=== PATIENT | female | born 1980 | race Caucasian/White ===

== ENCOUNTER 2016-10-29 20:47 | Emergency (ER) | payer SELFPAY ==
[~2016-10-29] VITALS: Ht 160 cm; Wt 50.0 kg
[2016-10-29 21:09] LABS: APPEARANCE,URINE CLOUDY (CLEAR); GLUCOSE, URINE (UA) NEGATIVE (NEGATIVE); KETONES,URINE NEGATIVE (NEGATIVE); LEUKOCYTE ESTERASE ,URINE TRACE (NEGATIVE); OCCULT BLOOD,URINE NEGATIVE (NEGATIVE); PROTEIN,URINE NEGATIVE (NEGATIVE)
[2016-10-29 21:12] LABS: ADD UA MICROSCOPIC YES
[2016-10-29 21:14] LABS: RBC,URINE 0-2 /HPF (0-2)
[2016-10-29 21:16] LABS: SQUAMOUS EPITHELIAL CELL,UR Many /LPF (None Seen)
[2016-10-29 21:20] LABS: BASOPHILS % (AUTO) 0.6 % (0.0-2.0); HEMOGLOBIN 13.9 g/dL (12.0-16.0); LYMPHOCYTES # (AUTO) 2.6 K/uL (1.0-4.8); LYMPHOCYTES % (AUTO) 20.6 % (22.0-44.0); MEAN CORPUSCULAR HEMOGLOBIN 28.5 pg (26.0-34.0); MEAN CORPUSCULAR HGB CONC 33.8 G/dL (31.0-37.0); MEAN CORPUSCULAR VOLUME 84 fL (80-100); MONOCYTES # (AUTO) 0.9 K/uL (0.1-1.0); MONOCYTES % (AUTO) 6.9 % (2.0-9.0); NEUTROPHILS % (AUTO) 70.9 % (40.0-70.0); PLATELET COUNT (AUTO) 338 K/uL (150-450); RED BLOOD CELL COUNT(AUTO) 4.86 MIL/uL (4.00-5.20); RED CELL DISTRIBUTION WIDTH 13.9 % (11.5-14.5); WHITE BLOOD COUNT (AUTO) 12.6 K/uL (4.5-11.0)
[2016-10-29 21:28] LABS: CALCIUM, TOTAL 9.1 mg/dL (8.8-10.5); CREATININE 1.43 mg/dL (0.60-1.30); POTASSIUM 3.5 mmol/L (3.5-5.1)
[2016-10-29 21:34] LABS: ALBUMIN 3.9 g/dL (3.4-5.0); BILIRUBIN,TOTAL 0.2 mg/dL (0.1-1.0); TOTAL PROTEIN, SERUM 7.9 g/dL (6.4-8.2)
[2016-10-29] MEDS ORDERED: SODIUM CHLORIDE 0.9% 1,000 ML IV ONE (23:15)
[2016-10-29] MEDS ORDERED: MORPHINE SULFATE 4 MG/ML SYRINGE IVP ONE (23:15)
[2016-10-29] MEDS ORDERED: METOCLOPRAMIDE HCL 5 MG/ML 2 ML VIAL IVP ONE (23:15)
[2016-10-30 01:45] VITALS: BP 120/75
== END 2016-10-30 01:52 | disposition home or self-care (01) ==
LOC: EMS 20:51
DX: N83.202 Unspecified ovarian cyst, left side (principal); K59.00 Constipation, unspecified; F17.210 Nicotine dependence, cigarettes, uncomplicated
CPT/HCPCS: 36415; 74176; 80053; 80307; 81001; 83690; 84703; 85025; 87077; 87086; 87186; 96374; 96375; 99285; J2270; J2765; J7030

== ENCOUNTER 2016-11-06 08:45 | Emergency (ER) | payer SELFPAY ==
[~2016-11-06] VITALS: Ht 162.6 cm; Wt 50.0 kg
[2016-11-06 09:40] LABS: BASOPHILS % (AUTO) 0.4 % (0.0-2.0); EOSINOPHILS % (AUTO) 1.4 % (1.0-6.0); HEMATOCRIT 38.9 % (36-46); HEMOGLOBIN 13.1 g/dL (12.0-16.0); LYMPHOCYTES # (AUTO) 1.5 K/uL (1.0-4.8); LYMPHOCYTES % (AUTO) 12.3 % (22.0-44.0); MEAN CORPUSCULAR HEMOGLOBIN 28.4 pg (26.0-34.0); MEAN CORPUSCULAR HGB CONC 33.7 G/dL (31.0-37.0); MEAN CORPUSCULAR VOLUME 84 fL (80-100); MONOCYTES # (AUTO) 1.5 K/uL (0.1-1.0); MONOCYTES % (AUTO) 12.5 % (2.0-9.0); NEUTROPHILS # (AUTO) 8.7 K/uL (1.8-7.7); NEUTROPHILS % (AUTO) 73.4 % (40.0-70.0); PLATELET COUNT (AUTO) 326 K/uL (150-450); RED BLOOD CELL COUNT(AUTO) 4.62 MIL/uL (4.00-5.20); RED CELL DISTRIBUTION WIDTH 13.6 % (11.5-14.5); WHITE BLOOD COUNT (AUTO) 11.8 K/uL (4.5-11.0)
[2016-11-06 09:49] LABS: CREATININE 1.11 mg/dL (0.60-1.30)
[2016-11-06 09:58] LABS: ALBUMIN 3.2 g/dL (3.4-5.0); BILIRUBIN,TOTAL 0.2 mg/dL (0.1-1.0)
[2016-11-06 10:15] LABS: APPEARANCE,URINE CLOUDY (CLEAR); GLUCOSE, URINE (UA) NEGATIVE (NEGATIVE); KETONES,URINE NEGATIVE (NEGATIVE); LEUKOCYTE ESTERASE ,URINE SMALL (NEGATIVE); OCCULT BLOOD,URINE MODERATE (NEGATIVE); PROTEIN,URINE TRACE (NEGATIVE)
[2016-11-06 10:25] LABS: SQUAMOUS EPITHELIAL CELL,UR Moderate /LPF (None Seen)
[2016-11-06 11:02] VITALS: BP 131/79
[2016-11-06] MEDS ORDERED: CIPROFLOXACIN HCL 250 MG TABLET PO ONE (11:30)
== END 2016-11-06 11:43 | disposition home or self-care (01) ==
LOC: EMS 08:47
DX: N39.0 Urinary tract infection, site not specified (principal); F17.210 Nicotine dependence, cigarettes, uncomplicated; Z90.89 Acquired absence of other organs
CPT/HCPCS: 87086; 99284

== ENCOUNTER 2016-12-10 00:19 | Emergency (ER) | payer MEDICAID ==
[~2016-12-10] VITALS: Ht 160 cm; Wt 50.0 kg
[2016-12-10 01:40] VITALS: BP 154/111
[2016-12-10 01:43] LABS: APPEARANCE,URINE CLOUDY (CLEAR); GLUCOSE, URINE (UA) NEGATIVE (NEGATIVE); KETONES,URINE NEGATIVE (NEGATIVE); LEUKOCYTE ESTERASE ,URINE SMALL (NEGATIVE); OCCULT BLOOD,URINE NEGATIVE (NEGATIVE); PROTEIN,URINE NEGATIVE (NEGATIVE)
[2016-12-10 01:45] LABS: ADD UA MICROSCOPIC YES
[2016-12-10 01:52] LABS: RBC,URINE 0-2 /HPF (0-2); SQUAMOUS EPITHELIAL CELL,UR Few /LPF (None Seen)
[2016-12-10] MEDS ORDERED: CloNIDine HCL 0.2 MG TABLET PO ONE (02:00)
[2016-12-10] MEDS ORDERED: KETOROLAC TROMETHAMINE 30 MG/ML VIAL IM ONE (02:00)
== END 2016-12-10 02:20 | disposition home or self-care (01) ==
LOC: EMS 00:20
DX: G43.909 Migraine, unspecified, not intractable, without status migrainosus (principal); F17.210 Nicotine dependence, cigarettes, uncomplicated
CPT/HCPCS: 80307; 81001; 84703; 87077; 87086; 87186; 96372; 99284; J1885

== ENCOUNTER 2017-01-11 23:30 | Emergency (ER) | payer MEDICAID ==
[~2017-01-11] VITALS: Ht 165.1 cm; Wt 50.0 kg
[2017-01-11] MEDS ORDERED: AMLO-512 PO (23:35)
[2017-01-12 00:33] LABS: BASOPHILS # (AUTO) 0.08 K/uL (0.00-0.20); BASOPHILS % (AUTO) 0.5 % (0.0-2.0); EOSINOPHILS # (AUTO) 0.16 K/uL (0.00-0.70); EOSINOPHILS % (AUTO) 1.06 % (1.0-6.0); HEMATOCRIT 41.1 % (36-46); HEMOGLOBIN 13.8 g/dL (12.0-16.0); LYMPHOCYTES # (AUTO) 2.5 K/uL (1.0-4.8); LYMPHOCYTES % (AUTO) 16.7 % (22.0-44.0); MEAN CORPUSCULAR HEMOGLOBIN 28.4 pg (26.0-34.0); MEAN CORPUSCULAR HGB CONC 33.6 G/dL (31.0-37.0); MEAN CORPUSCULAR VOLUME 85 fL (80-100); MONOCYTES # (AUTO) 1.2 K/uL (0.1-1.0); MONOCYTES % (AUTO) 8.1 % (2.0-9.0); NEUTROPHILS # (AUTO) 11.1 K/uL (1.8-7.7); NEUTROPHILS % (AUTO) 73.6 % (40.0-70.0); PLATELET COUNT (AUTO) 350 K/uL (150-450); RED BLOOD CELL COUNT(AUTO) 4.86 MIL/uL (4.00-5.20); RED CELL DISTRIBUTION WIDTH 12.9 % (11.5-14.5); WHITE BLOOD COUNT (AUTO) 15.1 K/uL (4.5-11.0)
[2017-01-12 00:41] LABS: ANION GAP 5 mmol/L (8-16); CALCIUM, TOTAL 9.6 mg/dL (8.8-10.5); CARBON DIOXIDE 33 mmol/L (22-29); CHLORIDE 102 mmol/L (98-107); CREATININE 1.23 mg/dL (0.60-1.30); GLOMERULAR FILTR. RATE CALC 50 mL/min (>60); POTASSIUM 3.7 mmol/L (3.5-5.1); SODIUM SERUM 140 mmol/L (136-145); UREA NITROGEN, BLOOD 17 mg/dL (7-18)
[2017-01-12 00:47] LABS: ALANINE AMINOTRANSFERASE 15 U/L (12-78); ALBUMIN 3.8 g/dL (3.4-5.0); ASPARTATE AMINOTRANSFERASE 14 U/L (15-37); BILIRUBIN,TOTAL 0.2 mg/dL (0.1-1.0); TOTAL PROTEIN, SERUM 7.7 g/dL (6.4-8.2)
[2017-01-12 02:30] VITALS: BP 146/98
== END 2017-01-12 03:10 | disposition home or self-care (01) ==
LOC: EMS 23:31
DX: T43.625A Adverse effect of amphetamines, initial encounter (principal); Y92.89 Other specified places as the place of occurrence of the external cause
CPT/HCPCS: 36415; 80053; 85025; 93005; 99285; G0480

== ENCOUNTER 2017-02-03 21:08 | Emergency (ER) | payer MEDICAID ==
[~2017-02-03] VITALS: Ht 162.6 cm; Wt 50.0 kg
[~2017-02-03 21:08] MED LIST: AMLO-512 PO
[2017-02-03 22:13] LABS: APPEARANCE,URINE CLOUDY (CLEAR); GLUCOSE, URINE (UA) NEGATIVE (NEGATIVE); KETONES,URINE NEGATIVE (NEGATIVE); LEUKOCYTE ESTERASE ,URINE NEGATIVE (NEGATIVE); OCCULT BLOOD,URINE MODERATE (NEGATIVE); PH,URINE 6.5 (5.0-8.0); PROTEIN,URINE NEGATIVE (NEGATIVE)
[2017-02-03 22:14] LABS: ADD UA MICROSCOPIC YES
[2017-02-03] MEDS ORDERED: IBUPROFEN 600 MG TABLET PO ONE (22:15)
[2017-02-03 22:17] LABS: SQUAMOUS EPITHELIAL CELL,UR Few /LPF (None Seen)
[2017-02-03 22:18] LABS: BASOPHILS % (AUTO) 0.7 % (0.0-2.0); EOSINOPHILS % (AUTO) 1.2 % (1.0-6.0); HEMATOCRIT 37.2 % (36-46); HEMOGLOBIN 12.4 g/dL (12.0-16.0); LYMPHOCYTES # (AUTO) 1.3 K/uL (1.0-4.8); LYMPHOCYTES % (AUTO) 20.6 % (22.0-44.0); MEAN CORPUSCULAR HEMOGLOBIN 28.2 pg (26.0-34.0); MEAN CORPUSCULAR HGB CONC 33.2 G/dL (31.0-37.0); MEAN CORPUSCULAR VOLUME 85 fL (80-100); MONOCYTES # (AUTO) 1.1 K/uL (0.1-1.0); MONOCYTES % (AUTO) 16.9 % (2.0-9.0); NEUTROPHILS # (AUTO) 3.9 K/uL (1.8-7.7); NEUTROPHILS % (AUTO) 60.6 % (40.0-70.0); PLATELET COUNT (AUTO) 309 K/uL (150-450); RED BLOOD CELL COUNT(AUTO) 4.39 MIL/uL (4.00-5.20); RED CELL DISTRIBUTION WIDTH 13.5 % (11.5-14.5); WHITE BLOOD COUNT (AUTO) 6.4 K/uL (4.5-11.0)
[2017-02-03 22:54] LABS: ANION GAP 6 mmol/L (8-16); CALCIUM, TOTAL 8.4 mg/dL (8.8-10.5); CARBON DIOXIDE 29 mmol/L (22-29); CHLORIDE 105 mmol/L (98-107); CREATININE 1.08 mg/dL (0.60-1.30); GLOMERULAR FILTR. RATE CALC 58 mL/min (>60); POTASSIUM 3.5 mmol/L (3.5-5.1); SODIUM SERUM 140 mmol/L (136-145); UREA NITROGEN, BLOOD 11 mg/dL (7-18)
[2017-02-03 23:12] VITALS: BP 143/100
[2017-02-03 23:18] LABS: ALANINE AMINOTRANSFERASE 21 U/L (12-78); ALBUMIN 3.5 g/dL (3.4-5.0); ASPARTATE AMINOTRANSFERASE 20 U/L (15-37); BILIRUBIN,TOTAL 0.2 mg/dL (0.1-1.0); CREATINE KINASE MB 4.5 ng/mL (0-5); CREATINE KINASE, TOTAL 297 U/L (26-192); TOTAL PROTEIN, SERUM 7.2 g/dL (6.4-8.2)
== END 2017-02-03 23:41 | disposition home or self-care (01) ==
LOC: EMS 21:09
DX: M79.1 Myalgia (principal); N39.0 Urinary tract infection, site not specified; I10 Essential (primary) hypertension; F17.210 Nicotine dependence, cigarettes, uncomplicated
CPT/HCPCS: 87086; 99284

== ENCOUNTER 2017-05-29 23:19 | Emergency (ER) | payer MEDICAID ==
[~2017-05-29] VITALS: Ht 165.1 cm; Wt 49.1 kg
[2017-05-30 02:32] VITALS: BP 159/98
[2017-05-30] MEDS ORDERED: MORPHINE SULFATE 4 MG/ML SYRINGE IM ONE (02:45)
[2017-05-30] MEDS ORDERED: DEXAMETHASONE SOD PHOS 4 MG/ML 5 ML VIAL IM ONE (02:45)
[2017-05-30] MEDS ORDERED: LORazepam 2 MG/ML VIAL IM ONE (02:45)
== END 2017-05-30 03:03 | disposition home or self-care (01) ==
LOC: EMS 23:19
DX: G54.2 Cervical root disorders, not elsewhere classified (principal); I10 Essential (primary) hypertension; F17.210 Nicotine dependence, cigarettes, uncomplicated
CPT/HCPCS: 96372; 99284; J1100; J2060; J2270

== ENCOUNTER 2017-07-24 01:17 | Emergency (ER) | payer MEDICAID ==
[~2017-07-24] VITALS: Ht 162.6 cm; Wt 50.0 kg
[2017-07-24 01:23] VITALS: BP 143/102
== END 2017-07-24 03:11 | disposition left against medical advice (07) ==
LOC: EMS 01:18
DX: T19.2XXA Foreign body in vulva and vagina, initial encounter (principal); X58.XXXA Exposure to other specified factors, initial encounter; Y93.89 Activity, other specified; Y92.89 Other specified places as the place of occurrence of the external cause; Y99.8 Other external cause status; Z53.21 Procedure and treatment not carried out due to patient leaving prior to being seen by health care provider

== ENCOUNTER 2017-09-20 16:07 | Emergency (ER) | payer MEDICAID ==
[~2017-09-20] VITALS: Ht 162.6 cm; Wt 50.0 kg
[2017-09-20 18:00] VITALS: BP 148/96
== END 2017-09-20 18:04 | disposition home or self-care (01) ==
LOC: EMS 16:08
DX: H61.22 Impacted cerumen, left ear (principal); I10 Essential (primary) hypertension; F17.210 Nicotine dependence, cigarettes, uncomplicated; F19.90 Other psychoactive substance use, unspecified, uncomplicated
CPT/HCPCS: 69209; 99282

== ENCOUNTER 2017-10-04 19:58 | Emergency (ER) | payer MEDICAID ==
[~2017-10-04] VITALS: Ht 162.6 cm; Wt 50.0 kg
[2017-10-04 20:00] VITALS: BP 164/67
== END 2017-10-04 22:30 | disposition left against medical advice (07) ==
LOC: EMS 19:59
DX: T23.051A Burn of unspecified degree of right palm, initial encounter (principal); I10 Essential (primary) hypertension; F17.210 Nicotine dependence, cigarettes, uncomplicated; F19.90 Other psychoactive substance use, unspecified, uncomplicated; Z53.21 Procedure and treatment not carried out due to patient leaving prior to being seen by health care provider; X12.XXXA Contact with other hot fluids, initial encounter; Y93.89 Activity, other specified; Y92.89 Other specified places as the place of occurrence of the external cause; Y99.8 Other external cause status

== ENCOUNTER 2017-10-05 02:41 | Emergency (ER) | payer MEDICAID ==
[~2017-10-05] VITALS: Ht 157.5 cm; Wt 59.1 kg
[2017-10-05 02:45] VITALS: BP 149/97
[2017-10-05] MEDS ORDERED: SILVER SULFADIAZINE 1% 25 GM CREAM TP ONE (03:15)
== END 2017-10-05 03:52 | disposition home or self-care (01) ==
LOC: EMS 02:42
DX: T23.201A Burn of second degree of right hand, unspecified site, initial encounter (principal); I10 Essential (primary) hypertension; F17.210 Nicotine dependence, cigarettes, uncomplicated; F19.90 Other psychoactive substance use, unspecified, uncomplicated; X08.8XXA Exposure to other specified smoke, fire and flames, initial encounter; Y93.89 Activity, other specified; Y92.89 Other specified places as the place of occurrence of the external cause; Y99.8 Other external cause status
CPT/HCPCS: 16020; 99284; Z7610

== ENCOUNTER 2017-10-10 20:24 | Emergency (ER) | payer MEDICAID ==
[~2017-10-10] VITALS: Ht 162.6 cm; Wt 50.0 kg
[2017-10-10 20:42] VITALS: BP 166/104
== END 2017-10-10 23:37 | disposition left against medical advice (07) ==
LOC: EMS 20:25
DX: T23.0 Burn of unspecified degree of wrist and hand (principal); I10 Essential (primary) hypertension; F17.210 Nicotine dependence, cigarettes, uncomplicated; Z76.0 Encounter for issue of repeat prescription; X58.XXXD Exposure to other specified factors, subsequent encounter; Z53.21 Procedure and treatment not carried out due to patient leaving prior to being seen by health care provider

== ENCOUNTER 2017-12-12 14:47 | Emergency (ER) | payer MEDICAID ==
[~2017-12-12] VITALS: Ht 162.6 cm; Wt 50.0 kg
[2017-12-12] MEDS ORDERED: SODIUM CHLORIDE 0.9% 1,000 ML IV ONE (17:00)
[2017-12-12 17:21] LABS: EOSINOPHILS % (AUTO) 2.1 % (1.0-6.0); HEMATOCRIT 40.8 % (36-46); HEMOGLOBIN 13.7 g/dL (12.0-16.0); MEAN CORPUSCULAR HEMOGLOBIN 28.4 pg (26.0-34.0); MEAN CORPUSCULAR HGB CONC 33.5 G/dL (31.0-37.0); MEAN CORPUSCULAR VOLUME 85 fL (80-100); MONOCYTES # (AUTO) 1.1 K/uL (0.1-1.0); MONOCYTES % (AUTO) 11.9 % (2.0-9.0); NEUTROPHILS # (AUTO) 5.5 K/uL (1.8-7.7); PLATELET COUNT (AUTO) 305 K/uL (150-450); RED BLOOD CELL COUNT(AUTO) 4.81 MIL/uL (4.00-5.20); RED CELL DISTRIBUTION WIDTH 13.7 % (11.5-14.5)
[2017-12-12 17:37] LABS: CALCIUM, TOTAL 8.9 mg/dL (8.8-10.5); CREATININE 1.21 mg/dL (0.60-1.30); POTASSIUM 3.3 mmol/L (3.5-5.1)
[2017-12-12 17:51] LABS: ALBUMIN 3.6 g/dL (3.4-5.0); BILIRUBIN,TOTAL 0.3 mg/dL (0.1-1.0); TOTAL PROTEIN, SERUM 7.5 g/dL (6.4-8.2)
[2017-12-12] MEDS ORDERED: CEPHALEXIN MONOHYDRATE 500 MG CAPSULE PO ONE (18:15)
[2017-12-12 18:41] VITALS: BP 149/98
== END 2017-12-12 18:53 | disposition home or self-care (01) ==
LOC: EMS 14:48
DX: T19.2XXA Foreign body in vulva and vagina, initial encounter (principal); R53.81 Other malaise; I10 Essential (primary) hypertension; F17.210 Nicotine dependence, cigarettes, uncomplicated; F15.10 Other stimulant abuse, uncomplicated; Z71.6 Tobacco abuse counseling; Z98.890 Other specified postprocedural states; Z90.49 Acquired absence of other specified parts of digestive tract; X58.XXXA Exposure to other specified factors, initial encounter; Y93.89 Activity, other specified; Y92.89 Other specified places as the place of occurrence of the external cause; Y99.8 Other external cause status
CPT/HCPCS: 36415; 80053; 85025; 99284; 99406; J7030

== ENCOUNTER 2018-05-20 12:33 | Emergency (ER) | payer MEDICAID ==
[~2018-05-20] VITALS: Ht 162.6 cm; Wt 50.0 kg
[2018-05-20 12:46] VITALS: BP 154/98
== END 2018-05-20 14:15 | disposition left against medical advice (07) ==
LOC: EMS 12:33
DX: M79.644 Pain in right finger(s) (principal); Z53.21 Procedure and treatment not carried out due to patient leaving prior to being seen by health care provider

== ENCOUNTER 2018-05-21 12:05 | Emergency (ER) | payer MEDICAID ==
[~2018-05-21] VITALS: Ht 162.6 cm; Wt 50.0 kg
[2018-05-21] MEDS ORDERED: IBUPROFEN 400 MG TABLET PO ONE (13:00)
[2018-05-21 14:50] VITALS: BP 126/84
== END 2018-05-21 15:00 | disposition home or self-care (01) ==
LOC: EMS 12:06
DX: S62.646A Nondisplaced fracture of proximal phalanx of right little finger, initial encounter for closed fracture (principal); S62.624A Displaced fracture of middle phalanx of right ring finger, initial encounter for closed fracture; I10 Essential (primary) hypertension; F17.210 Nicotine dependence, cigarettes, uncomplicated; F19.90 Other psychoactive substance use, unspecified, uncomplicated; W21.01XA Struck by football, initial encounter; Y93.61 Activity, american tackle football; Y92.89 Other specified places as the place of occurrence of the external cause; Y99.8 Other external cause status

== ENCOUNTER 2019-06-07 12:35 | Emergency (ER) | payer MEDICAID ==
[~2019-06-07] VITALS: Ht 160 cm; Wt 50.0 kg
[2019-06-07] MEDS ORDERED: KETOROLAC TROMETHAMINE 60 MG/2 ML VIAL IM ONE (13:30)
[2019-06-07 14:50] VITALS: BP 118/82
== END 2019-06-07 15:27 | disposition home or self-care (01) ==
LOC: EMS 12:41
DX: S46.812A Strain of other muscles, fascia and tendons at shoulder and upper arm level, left arm, initial encounter (principal); I10 Essential (primary) hypertension; F17.210 Nicotine dependence, cigarettes, uncomplicated; F15.90 Other stimulant use, unspecified, uncomplicated; Z98.890 Other specified postprocedural states; X50.9XXA Other and unspecified overexertion or strenuous movements or postures, initial encounter; Y93.89 Activity, other specified; Y92.89 Other specified places as the place of occurrence of the external cause; Y99.8 Other external cause status
CPT/HCPCS: 96372; 99283; 99406; J1885

== ENCOUNTER 2020-01-25 11:54 | Emergency (ER) | payer MEDICAID ==
[~2020-01-25] VITALS: Ht 154.9 cm; Wt 52.3 kg
[2020-01-25 12:07] VITALS: BP 185/135
== END 2020-01-25 13:51 | disposition left against medical advice (07) ==
LOC: EMS 11:57
DX: H57.11 Ocular pain, right eye (principal); Z53.21 Procedure and treatment not carried out due to patient leaving prior to being seen by health care provider

== ENCOUNTER 2021-01-13 15:05 | Emergency (ER) | payer MEDICAID ==
[~2021-01-13] VITALS: Ht 152.4 cm; Wt 55.0 kg
[2021-01-13 15:37] VITALS: BP 101/55
[2021-01-13 19:15] LABS: APPEARANCE,URINE CLOUDY (CLEAR); GLUCOSE, URINE (UA) NEGATIVE (NEGATIVE); KETONES,URINE TRACE mg/dL (NEGATIVE); LEUKOCYTE ESTERASE ,URINE MODERATE (NEGATIVE); NITRATE,URINE POSITIVE (NEGATIVE); OCCULT BLOOD,URINE LARGE (NEGATIVE); PROTEIN,URINE POS 1+ (NEGATIVE)
[2021-01-13 19:16] LABS: BILIRUBIN,URINE PRELIM. POSITIVE (NEGATIVE)
[2021-01-13 19:54] LABS: SQUAMOUS EPITHELIAL CELL,UR Many /LPF (None Seen)
[2021-01-13 19:55] LABS: WBC,URINE 26-50 /HPF (0-5)
[2021-01-13 19:56] LABS: BACTERIA,URINE Many /HPF (None Seen)
== END 2021-01-13 18:32 | disposition left against medical advice (07) ==
LOC: EMS 15:09
DX: R52 Pain, unspecified (principal); Z53.21 Procedure and treatment not carried out due to patient leaving prior to being seen by health care provider
CPT/HCPCS: 81001; 87077; 87086; 87186

== ENCOUNTER 2021-02-08 16:56 | Emergency (ER) | payer MEDICAID ==
[~2021-02-08] VITALS: Ht 162.6 cm; Wt 50.0 kg
[2021-02-08 17:07] VITALS: BP 144/98
== END 2021-02-08 17:56 | disposition home or self-care (01) ==
LOC: EMS 16:57
DX: N63.0 Unspecified lump in unspecified breast (principal)
CPT/HCPCS: 99281; Z7502

== ENCOUNTER 2023-11-30 11:38 | Emergency (ER) | payer MEDICAID ==
[~2023-11-30] VITALS: Ht 162.6 cm; Wt 54.5 kg
[2023-11-30 11:48] VITALS: TEMP 98.1
[2023-11-30 12:14] LABS: COVID AG,FIA SOURCE NASAL SWAB
[2023-11-30 13:10] LABS: RAPID GROUP A STREP NEGATIVE (NEGATIVE)
[2023-11-30 13:11] VITALS: BP 148/92; PULSE 96; RESP 16
[2023-11-30 13:11] LABS: SARS-COV2 (COVID) ANTIGEN,FIA Negative (Negative)
[2023-11-30 13:13] LABS: INFLUENZA TYPE A NEGATIVE FOR TYPE A (NEGATIVE); INFLUENZA TYPE B NEGATIVE FOR TYPE B (NEGATIVE)
[2023-11-30] MEDS ORDERED: PSEU-191 PO (13:51)
[2023-11-30] MEDS ORDERED: AZIT250T9 PO (13:51)
== END 2023-11-30 14:11 | disposition home or self-care (01) ==
LOC: EMS 11:38
DX: J01.90 Acute sinusitis, unspecified (principal); J02.9 Acute pharyngitis, unspecified; R09.89 Other specified symptoms and signs involving the circulatory and respiratory systems; I10 Essential (primary) hypertension; F17.210 Nicotine dependence, cigarettes, uncomplicated; Z20.822 Contact with and (suspected) exposure to COVID-19
CPT/HCPCS: 87430; 87804; 99283

== ENCOUNTER 2024-01-18 20:16 | Emergency (ER) | payer MEDICAID ==
[~2024-01-18 20:16] MED LIST changes: -AMLO-512 PO; +PSEU-191 PO
[2024-01-18 21:08] LABS: BASOPHILS % (AUTO) 0.9 % (0.0-2.0); HEMATOCRIT 40.7 % (36-46); HEMOGLOBIN 13.5 g/dL (12.0-16.0); LYMPHOCYTES # (AUTO) 3.2 K/uL (1.0-4.8); LYMPHOCYTES % (AUTO) 33.5 % (22.0-44.0); MEAN CORPUSCULAR HEMOGLOBIN 28.1 pg (26.0-34.0); MEAN CORPUSCULAR HGB CONC 33.1 G/dL (31.0-37.0); MEAN CORPUSCULAR VOLUME 85 fL (80-100); MONOCYTES # (AUTO) 0.9 K/uL (0.1-1.0); MONOCYTES % (AUTO) 9.9 % (2.0-9.0); NEUTROPHILS # (AUTO) 5.2 K/uL (1.8-7.7); NEUTROPHILS % (AUTO) 54.7 % (40.0-70.0); PLATELET COUNT (AUTO) 430 K/uL (150-450); RED BLOOD CELL COUNT(AUTO) 4.79 MIL/uL (4.00-5.20); RED CELL DISTRIBUTION WIDTH 13.6 % (11.5-14.5); WHITE BLOOD COUNT (AUTO) 9.5 K/uL (4.5-11.0)
[2024-01-18 21:21] LABS: CALCIUM, TOTAL 8.8 mg/dL (8.8-10.5); CREATININE 1.55 mg/dL (0.60-1.30); POTASSIUM 3.5 mmol/L (3.5-5.1)
[2024-01-18 21:27] LABS: TROPONIN I-HIGH SENSITIVITY 4 ng/L (<51)
[2024-01-18] MEDS ORDERED: CLON-353 PO (22:29)
[2024-01-18] MEDS: CloNIDine HCL 0.2 MG TABLET PO ONE (22:35)
[2024-01-18 22:56] VITALS: BP 162/106; PULSE 80; RESP 16; O2SAT 99
== END 2024-01-18 23:44 | disposition home or self-care (01) ==
LOC: EMS 20:16
DX: I10 Essential (primary) hypertension (principal); F41.9 Anxiety disorder, unspecified; F17.210 Nicotine dependence, cigarettes, uncomplicated
CPT/HCPCS: 80048; 84484; 85025; 93005; 99284

== ENCOUNTER 2024-05-04 18:15 | Emergency (ER) | payer MEDICAID, OTHER ==
[~2024-05-04] VITALS: Ht 160 cm; Wt 50.0 kg
[~2024-05-04 18:15] MED LIST changes: +CLON-353 PO
[2024-05-04 18:32] VITALS: BP 169/111; PULSE 98; RESP 18; TEMP 97.9; O2SAT 100
== END 2024-05-04 22:02 | disposition left against medical advice (07) ==
LOC: EMS 18:15
DX: Z53.21 Procedure and treatment not carried out due to patient leaving prior to being seen by health care provider (principal)

== ENCOUNTER 2024-05-08 21:50 | Emergency (ER) | payer OTHER ==
[~2024-05-08] VITALS: Ht 162.6 cm; Wt 50.0 kg
[~2024-05-08 21:50] MED LIST changes: -PSEU-191 PO
[2024-05-08 22:31] VITALS: BP 155/99; PULSE 88; RESP 20; TEMP 98.6; O2SAT 99
== END 2024-05-09 00:34 | disposition left against medical advice (07) ==
LOC: EMS 21:51
DX: S30.860A Insect bite (nonvenomous) of lower back and pelvis, initial encounter (principal); Z53.21 Procedure and treatment not carried out due to patient leaving prior to being seen by health care provider; W57.XXXA Bitten or stung by nonvenomous insect and other nonvenomous arthropods, initial encounter; Y93.89 Activity, other specified; Y92.89 Other specified places as the place of occurrence of the external cause; Y99.8 Other external cause status